=== PATIENT | female | born 1985 | race Caucasian/White ===

== ENCOUNTER 2025-03-20 13:02 | Observation (INO) | payer BC ==
[2025-03-20 15:12] VITALS: BMI 24.7
[2025-03-20] MEDS ORDERED: Ondansetron PF 4 MG/2 ML Vial IVP PRN (16:01)
[2025-03-20] MEDS ORDERED: Melatonin 3 MG TAB PO PRN (16:01)
[2025-03-20] MEDS ORDERED: Senokot S 8.6-50 MG TAB PO PRN (16:01)
[2025-03-20] MEDS: levETIRAcetam 500 MG (5 mL) VIAL SLOW IVP SCH ×3 (17:00→21:23)
[2025-03-20] MEDS: Acetaminophen 325 MG TAB PO PRN (18:03)
[2025-03-20] MEDS: FLU (Fluarix Triv) 25-26 (6MOS UP)/PF 45 MCG/0.5 ML Syringe IM ONE (18:13)
[2025-03-21 04:09] LABS: #Basophils 0.05 10x3/uL (0.0-0.2); #Eosinophils 0.11 10x3/uL (0.0-0.7); #Monocytes 0.50 10x3/uL (0.11-0.59); #Neutrophils 4.09 10x3/uL (1.40-6.50); %Basophils 0.7 % (0.0-1.0); %Eosinophils 1.5 % (0.0-10.0); %Lymphocytes 36.5 % (21.0-51.0); %Monocytes 6.7 % (0.0-10.0); %Neutrophils 54.3 % (42.0-75.0); Hematocrit 37.1 % (36.0-47.0); Hemoglobin 11.9 g/dL (12.0-16.0); Mean Corpuscular Hemoglobin 26.9 pg (27.0-31.0); Mean Corpuscular Volume 83.7 fL (78.0-98.0); Platelet Count 275 10x3/uL (130-400); Red Blood Cell (RBC) Count 4.43 mill/uL (4.20-5.40); White Blood Cell (WBC) Count 7.51 10x3/uL (4.8-10.8)
[2025-03-21 04:22] LABS: Anion Gap 15 mmol/L (10-20); BUN (Urea Nitrogen) 10 mg/dL (7.0-18.7); Calc. Creatinine Clearance 107 mL/min (70-130); Calcium 8.8 mg/dL (7.8-10.44); Carbon Dioxide 20 mmol/L (22-29); Chloride 109 mmol/L (98-107); Glucose 97 mg/dL (70-105); Potassium 3.6 mmol/L (3.5-5.1); Sodium 140 mmol/L (136-145)
[2025-03-21] MEDS: levETIRAcetam 500 MG (5 mL) VIAL SLOW IVP SCH (09:33)
[2025-03-21 09:39] LABS: Magnesium 2.0 mg/dL (1.6-2.6)
[2025-03-21 17:41] VITALS: BP 96/65; TEMP 98.8
== END 2025-03-21 17:45 | disposition home or self-care (01) ==
LOC: 2SE 14:31
PROVIDERS: ADMIT Internal Medicine; ATTEND Family Medicine
DX: R56.9 Unspecified convulsions (principal); Z88.0 Allergy status to penicillin
CPT/HCPCS: 36415; 80048; 83735; 84443; 85025; 95700; 95711; 95957; J1953